=== PATIENT | male | born 1980 | race Caucasian/White ===

== ENCOUNTER 2017-04-14 16:37 | Emergency (ER) | payer OTHER ==
[~2017-04-14] VITALS: Ht 172.7 cm; Wt 100.0 kg
[~2017-04-14 16:37] MED LIST: HYCODAN1 ML OR; TAM75CAP OR; ZITHROMAX250 MG OR; no meds
[2017-04-14] MEDS ORDERED: ZPAK PO (18:17)
[2017-04-14] MEDS ORDERED: FLOXIN OTIC0.3 % OT (18:17)
[2017-04-14 18:22] VITALS: BP 138/70
== END 2017-04-14 18:22 | disposition home or self-care (01) | DRG 153 ==
LOC: ED 16:37
DX: H66.92 Otitis media, unspecified, left ear (principal); H60.92 Unspecified otitis externa, left ear

== ENCOUNTER 2018-05-19 00:27 | Emergency (ER) | payer BC ==
[~2018-05-19] VITALS: Ht 172.7 cm; Wt 100.0 kg
[~2018-05-19 00:27] MED LIST changes: +FLOXIN OTIC0.3 % OT; +ZPAK PO
[2018-05-19 01:47] VITALS: BP 134/93
[2018-05-19] MEDS ORDERED: GABAPENTIN300 M2 PO (01:52)
== END 2018-05-19 01:50 | disposition home or self-care (01) | DRG 74 ==
LOC: ED 00:27
DX: G50.1 Atypical facial pain (principal); R68.84 Jaw pain; F17.210 Nicotine dependence, cigarettes, uncomplicated

== ENCOUNTER 2019-10-29 | Emergency (ER) | payer BC ==
[~2019-10-29] MED LIST changes: +GABAPENTIN300 M2 PO
[2019-10-29] MEDS ORDERED: PROAIR HFA108 MCG/AC IN (11:17)
[2019-10-29 12:11] LABS: HEMATOCRIT 47.6 % (39.0-50.0); HEMOGLOBIN 15.6 g/dl (14.0-18.0); IMMATURE GRANULOCYTES 0.3 % (0.0-5.0); MEAN CELL VOLUME 89.6 fL CALC (80.0-100.0); MEAN CORPUSCULAR HGB 29.4 pG CALC (26.0-32.0); MEAN CORPUSCULAR HGB CONC 32.8 g/dL CAL (32.0-36.0); NEUT# 6.91 thou/uL (1.82-7.42); RED BLOOD COUNT 5.31 mill/uL (4.70-6.10); RED CELL DISTRI WIDTH 13.9 % (11.5-15.5)
[2019-10-29] MEDS ORDERED: BUPROPION HCL150 M1 PO (12:19)
[2019-10-29] MEDS ORDERED: TESSALON PER100 MG PO ×2 (12:25)
[2019-10-29] MEDS ORDERED: PREDNISONE50 MG PO (12:25)
== END 2019-10-29 12:30 | disposition home or self-care (01) | DRG 866 ==
PROVIDERS: Family Medicine
DX: B34.9 Viral infection, unspecified (principal); J45.901 Unspecified asthma with (acute) exacerbation; F17.210 Nicotine dependence, cigarettes, uncomplicated

== ENCOUNTER 2019-12-29 07:53 | Observation (INO) | payer BC ==
[~2019-12-29] VITALS: Ht 172.7 cm; Wt 102.1 kg
[~2019-12-29 07:53] MED LIST changes: +BUPROPION HCL150 M1 PO; +PREDNISONE50 MG PO; +PROAIR HFA108 MCG/AC IN; +TESSALON PER100 MG PO
--- NOTE | 2019-12-29 08:00 | NUR ---
PATIENT TO ROOM VIA WHEELCHAIR AND PHYSICIAN AT BEDSIDE FOR EVAL
[2019-12-29 08:25] LABS: HEMATOCRIT 47.1 % (39.0-50.0); HEMOGLOBIN 15.2 g/dl (14.0-18.0); IMMATURE GRANULOCYTES 0.4 % (0.0-5.0); MEAN CELL VOLUME 90.6 fL CALC (80.0-100.0); MEAN CORPUSCULAR HGB 29.2 pG CALC (26.0-32.0); MEAN CORPUSCULAR HGB CONC 32.3 g/dL CAL (32.0-36.0); NEUT# 7.7 thou/uL (1.82-7.42); RED BLOOD COUNT 5.2 mill/uL (4.70-6.10); RED CELL DISTRI WIDTH 14.4 % (11.5-15.5)
[2019-12-29 08:49] LABS: ALBUMIN 4.3 g/dL (3.2-5.0); ALKALINE PHOSPHATASE 41 u/l (38-126); BUN 15 mg/dL (9-20); BUN/CREATININE RATIO 18 (12-20 (CALC)); CHLORIDE 101 mmol/l (95-108); CREATININE 0.8 mg/dL (0.7-1.3); GFR > 60 ML/MIN (>=60 (CALC)); GFR FOR AFR.AMER. > 60 ML/MIN (>=60 (CALC)); POTASSIUM 4.2 mmol/l (3.5-5.1); SODIUM 139 mmol/l (137-146); TOTAL PROTEIN 7.6 g/dL (6.3-8.2)
[2019-12-29 08:50] LABS: ANION GAP 9 (6-22 (CALC)); BILIRUBIN, TOTAL 0.4 mg/dL (0.0-1.4); CARBON DIOXIDE 33 mmol/l (22-30); SGOT/AST 43 u/l (17-59)
--- NOTE | 2019-12-29 09:01 | NUR ---
PT MEDICATED RODERED, OFFERS NO NEW COMPLAINTS, TAKES MEDICATIONS ORDERED, AT BEDSIDE, WILL CONTINUE TO MONTIOR.
--- NOTE | 2019-12-29 09:39 | NUR ---
PT AWARE OF PENDING ADMISSION, ATTEMPTED TO CALL REPORT HOLLY MARTINEZ TO CALL BACK
--- NOTE | 2019-12-29 09:59 | NUR ---
REPORT CALLED TO HOLLY MARTINEZ
--- NOTE | 2019-12-29 10:20 | NUR ---
PT TRASNPORTED UPSTAIRD TO ROOM 268 VIA WHEELCHAIR, BELONGINGS WITH PT
--- NOTE | 2019-12-29 10:26 | NUR ---
PT ARRIVED FROM ER VIA WC WITH STAFF.
[2019-12-29 11:00] VITALS: BP 122/79
--- NOTE | 2019-12-29 11:00 | NUR ---
ASSESSMENT IS COMPLETED; IV SITE IS FREE FROM REDNESS OR EDEMA. HR IS REG,PULSES ARE STRONG X4, ABD IS SOFT WITH ACTIVE BS. TELE MONITOR IN PLACE. CONITNUE TO OBSERVE AND MONTOR/. BREATH SOUNDS ARE CLEAR,BILATERALLY,
--- NOTE | 2019-12-29 11:21 | NUR ---
SWABBED PT FOR MRSA PER PROTOCOL
--- NOTE | 2019-12-29 14:16 | NUR ---
PT HAS AUDIBLE WHEEZING NOTRD WHILE ASLEEP. IV SITE IS FREE FROM REDNESS OR EDEMA.
[2019-12-29 15:24] VITALS: BP 124/72
--- NOTE | 2019-12-29 16:00 | NUR ---
PT IS RESTING IN BED WITH NO DISTRESS NOTED. IV SITE IS FREE FROM REDNESS OR EDEMA.
[2019-12-29 18:45] VITALS: BP 140/95
--- NOTE | 2019-12-29 20:30 | NUR ---
REPORT RECEIVED FROM Sulema CAIN RN, CARE OF PT ASSUMED @ THIS TIME.
--- NOTE | 2019-12-29 21:15 | NUR ---
PHYSICAL ASSESMENT COMPLETE. VS TAKEN BY ANALYSIS ANALYST @ 1845 ASSESSED. TELEMETRY READING PROVIDED BY ED LUMBER TALLIER @ 1999 ASSESSED. PLAN OF CARE REVIEWED W/ PT, VERBALIZES UNDERSTANDING AND DENIES QUESTIONS @ THIS TIME. PROVIDED W/ HS SNACK AND EXTRA PILLOW PER HIS REQUEST. PT DENIES FURTHER NEEDS @ THIS TIME. CALL GARCIA WITHIN REACH, AGREES TO CALL PRN. BED LOCKED IN LOW POSITION W/ BEDRAILS UP X2, ITEMS WITHIN REACH.
[2019-12-29 23:35] VITALS: BP 133/71
--- NOTE | 2019-12-30 00:10 | NUR ---
TROPONINS DRAWN BY NITIN DRUPAL DEVELOPER.
--- NOTE | 2019-12-30 00:10 | NUR ---
PHYSICAL ASSESMENT UNCHANGED FROM BASELINE. VS TAKEN BY VISUAL EFFECTS EDITOR @ 0572 ASSESED. TELEMETRY READING PROVIDED BY ED CERTIFIED HEALTH EDUCATION SPECIALIST ASSESSED. PT DENIES NEEDS @ THIS TIME. CALL RADHA REAMINS WITHIN REACH, PT AGREES TO CALL PRN
--- NOTE | 2019-12-30 01:00 | NUR ---
TROPONIN RESULTS ASSESSED. RESULTS NEGATIVE. NO FURTHER INTERVENTION @ THIS TIME.
--- NOTE | 2019-12-30 03:28 | NUR ---
PT APPEARS TO BE SLEEPING COMFORTABLY. NO APPARENT DISTRESS. RESPIRATIONS REGULAR AND UNLABORED. CALL GARCIA REMAINS WITHIN REACH.
[2019-12-30 03:57] VITALS: BP 132/79
--- NOTE | 2019-12-30 05:22 | NUR ---
PHYSICAL ASSESSMENT REMAINS UNCHANGED FROM BASELINE. VS TAKEN BY EAR SPECIALIST @ 0357 ASSESSED. TELEMETRY READING PROVIDED BY ED EDGE SAWYER @ 0400 ASSESSED. PT DENIES FURTHER NEEDS @ THIS TIME. RESTING COMFORTABLY IN BED. CALL GARCIA REMAINS WITHIN REACH, AGREES TO CALL PRN. ITEMS REMAIN WITHIN REACH. BED REMAINS LOCKED IN LOW POSITION W/ BEDRAILS UP X2.
[2019-12-30 05:50] LABS: CHOLESTEROL HDL RATIO 4.4 (<4.4 (CALC))
--- NOTE | 2019-12-30 05:59 | NUR ---
PT ENDORSED TO Sulema CAIN RN, CARE OF PT HANDED OFF @ THIS TIME.
--- NOTE | 2019-12-30 07:33 | NUR ---
RECIEVED REPORT FROM DELFINO CAMPUZANO. PT SLEEPING IN LOW FOWLERS POSITION UPON ENTERING ROOM. BREATHING IS EVEN AND UNLABORED WITH NO SIGNS OF ANY DISTRESS. NO SIGNS OF ANY PAIN OR DISCOMFORTS AT THIS TIME. ALL SAFTEY [PRECAUTIONS IN PLACE WITH CALL LIGHT IN REACH. WILL CONTINUE TO MONITOR.
[2019-12-30 08:16] LABS: URINE BILIRUBIN - DIPSTICK NEGATIVE (NEGATIVE); URINE BLOOD DIPSTICK NEGATIVE (NEGATIVE); URINE COLOR YELLOW; URINE GLUCOSE - DIPSTICK NEGATIVE (NEGATIVE); URINE KETONE NEGATIVE (NEGATIVE); URINE LEUK ESTERASE NEGATIVE (NEGATIVE); URINE NITRITE - DIPSTICK NEGATIVE (Negative); URINE PROTEIN - DIPSTICK NEGATIVE (NEG-TRACE); URINE UROBILINOGEN - DIPSTICK 0.2 E.U./dL (0.2)
--- NOTE | 2019-12-30 08:59 | NUR ---
ELI,ANRP AT BEDSIDE
--- NOTE | 2019-12-30 09:00 | NUR ---
ASSESMENT AND VITALS COMPLETE.BP 128/62, HR 89, O2 92% ON ROOM AIR. HEART RHYTHM NORMAL, BOWEL SOUNDS ACTIVE, LUNG SOUNDS ARE CLEAR.PT A/O X3 AND AMBULATORY. RADIAL AND PEDAL PULSES ARE STRONG , NO EDEMA IN LOWER EXTREMITIES. SKIN IS COOL AND DRY. IV FLUSHED, SITE APPEARS HEALTHY AND PATENT. PUPILS ARE BRISK AND REACTIVE. PT DENIES ANY PAIN OR DISCOMFORTS AT THIS TIME.TELE IN PLACE READING SR RATE 88, PER ER MONITOR. ALL SAFTEY PRECAUTIONS IN PLACE WITH CALL LIGHT IN REACH. WILL CONTINUE TO MONITOR.
--- NOTE | 2019-12-30 09:21 | NUR ---
RT SOURAV AT BEDSIDE OBTAINING EKG.
[2019-12-30] MEDS ORDERED: ADVAIR DISK1 INH ×2 (10:10)
[2019-12-30] MEDS ORDERED: PREDNISONE10 MG PO ×2 (10:10)
[2019-12-30] MEDS ORDERED: ASPIRIN 8181 MG PO (10:11)
--- NOTE | 2019-12-30 10:47 | NUR ---
DR HOROWITZ AT BEDSIDE DISSCUSING POC.
--- NOTE | 2019-12-30 12:25 | NUR ---
ALL DISCHARGE INSTRUCTIONS PROVIDED AT THIS TIME BY JUAN GASCA;PT INSTRUCTED TO F/U WITH PCP AND CARDIOLOGY FOR ECHO.PT TO TAKE MEDICATIONS PRESCRIBED/DIRECTED;IV SITE REMOVED WITH CATHETER INTACT AMD TELE MONITORING D/C;WHEELCHAIR TO BE PROVIDED FOR D/C HOME;FAMILY TO TRANSPORT PT HOME.WILL CONTINUE TO MONITOR
--- NOTE | 2019-12-30 12:40 | NUR ---
Discharge instructions given. Patient verbalizes understanding of same. Discharged in stable condition via Wheelchair to Home with family. All belongings sent with pt. PT TRANSPORTED TO [facility] IN STABLE CONDITION VIA WHEELCHAIR ACCOMPANIED BY CHARLIE STOLL;FAMILY TO TRANSPORT PT HOME.
--- NOTE | 2019-12-30 12:45 | NUR ---
WORK RELEASE FORM PROVIDED TO PT.
--- NOTE | 2020-01-01 12:16 | NUR ---
Notified patient of 12/29/2019 Covid results (negative). Advised patient to follow up with PCP or return to ED with urgent issues. Advised patient to continue practicing Covid prevention. Patient verbalized understanding.
== END 2019-12-30 12:40 | disposition home or self-care (01) | DRG 203 ==
LOC: ED 07:53 → ED-I 09:05 → ED 09:17 → ED-I 09:18 → MS2 09:31
PROVIDERS: Family Medicine; ADMIT Internal Medicine; ATTEND Internal Medicine
DX: J45.901 Unspecified asthma with (acute) exacerbation (principal); R07.9 Chest pain, unspecified; R94.31 Abnormal electrocardiogram [ECG] [EKG]; F17.200 Nicotine dependence, unspecified, uncomplicated; F41.9 Anxiety disorder, unspecified; F32.9 Major depressive disorder, single episode, unspecified; Z20.828 Contact with and (suspected) exposure to other viral communicable diseases
CPT/HCPCS: G0378

== ENCOUNTER 2020-02-23 12:47 | Emergency (ER) | payer BC ==
[~2020-02-23] VITALS: Ht 172.7 cm; Wt 118.2 kg
[~2020-02-23 12:47] MED LIST changes: +ADVAIR DISK1 INH; +ASPIRIN 8181 MG PO; +PREDNISONE10 MG PO
[2020-02-23] MEDS ORDERED: LAMICTAL150 M1 PO (13:08)
[2020-02-23] MEDS ORDERED: LASIX20 MG PO (13:08)
[2020-02-23] MEDS ORDERED: KEFLEX500 M1 PO (13:30)
[2020-02-23 13:39] VITALS: BP 126/78
== END 2020-02-23 13:35 | disposition home or self-care (01) | DRG 603 ==
LOC: ED 12:47
DX: L02.415 Cutaneous abscess of right lower limb (principal); F17.200 Nicotine dependence, unspecified, uncomplicated

== ENCOUNTER 2020-08-18 14:07 | Emergency (ER) | payer BC ==
[~2020-08-18] VITALS: Ht 172.7 cm; Wt 113.0 kg
[~2020-08-18 14:07] MED LIST changes: +KEFLEX500 M1 PO; +LAMICTAL150 M1 PO; +LASIX20 MG PO
[2020-08-18] MEDS ORDERED: ATIVAN1 MG PO (14:42)
[2020-08-18 15:27] LABS: ANION GAP 15 (6-22 (CALC)); BUN 13 mg/dL (9-20); BUN/CREATININE RATIO 16 (12-20 (CALC)); CARBON DIOXIDE 25 mmol/l (22-30); CHLORIDE 104 mmol/l (95-108); CREATININE 0.8 mg/dL (0.7-1.3); GFR > 60 ML/MIN (>=60 (CALC)); GFR FOR AFR.AMER. > 60 ML/MIN (>=60 (CALC)); HEMOGLOBIN 16.4 g/dl (14.0-18.0); IMMATURE GRANULOCYTES 0.3 % (0.0-5.0); MEAN CELL VOLUME 89.9 fL CALC (80.0-100.0); MEAN CORPUSCULAR HGB 28.9 pG CALC (26.0-32.0); MEAN CORPUSCULAR HGB CONC 32.2 g/dL CAL (32.0-36.0); NEUT# 6.03 thou/uL (1.82-7.42); POTASSIUM 4.6 mmol/l (3.5-5.1); RED BLOOD COUNT 5.67 mill/uL (4.70-6.10); SODIUM 139 mmol/l (137-146)
[2020-08-18] MEDS ORDERED: PREDNISONE50 MG PO (16:39)
[2020-08-18] MEDS ORDERED: ZPAK PO (16:39)
[2020-08-18 16:53] VITALS: BP 145/95
== END 2020-08-18 17:02 | disposition home or self-care (01) | DRG 313 ==
LOC: ED 14:07
PROVIDERS: Family Medicine
DX: R07.9 Chest pain, unspecified (principal); J45.901 Unspecified asthma with (acute) exacerbation; G40.909 Epilepsy, unspecified, not intractable, without status epilepticus; I50.9 Heart failure, unspecified; F32.9 Major depressive disorder, single episode, unspecified; F41.9 Anxiety disorder, unspecified; F17.210 Nicotine dependence, cigarettes, uncomplicated; Z20.822 Contact with and (suspected) exposure to COVID-19

== ENCOUNTER 2020-10-21 20:38 | Emergency (ER) | payer BC ==
[~2020-10-21] VITALS: Ht 172.7 cm; Wt 105.0 kg
[~2020-10-21 20:38] MED LIST changes: +ATIVAN1 MG PO
[2020-10-21 21:50] LABS: HEMOGLOBIN 15.1 g/dl (14.0-18.0); IMMATURE GRANULOCYTES 1.5 % (0.0-5.0); MEAN CELL VOLUME 91.6 fL CALC (80.0-100.0); MEAN CORPUSCULAR HGB 29.4 pG CALC (26.0-32.0); MEAN CORPUSCULAR HGB CONC 32.1 g/dL CAL (32.0-36.0); NEUT# 5.68 thou/uL (1.82-7.42); RED BLOOD COUNT 5.13 mill/uL (4.70-6.10); RED CELL DISTRI WIDTH 14.3 % (11.5-15.5)
--- NOTE | 2020-10-21 21:50 | NUR ---
BREATHING TREATMENT GIVEN BACK TO BACK FOR WHEEZING AND SOB.
[2020-10-21 22:09] LABS: ALBUMIN 4.3 g/dL (3.2-5.0); ALKALINE PHOSPHATASE 48 u/l (38-126); ANION GAP 11 (6-22 (CALC)); BILIRUBIN, TOTAL 0.5 mg/dL (0.0-1.4); BUN 15 mg/dL (9-20); BUN/CREATININE RATIO 15 (12-20 (CALC)); CARBON DIOXIDE 29 mmol/l (22-30); CHLORIDE 101 mmol/l (95-108); CREATININE 0.9 mg/dL (0.7-1.3); GFR > 60 ML/MIN (>=60 (CALC)); GFR FOR AFR.AMER. > 60 ML/MIN (>=60 (CALC)); POTASSIUM 3.8 mmol/l (3.5-5.1); SGOT/AST 23 u/l (17-59); SODIUM 137 mmol/l (137-146); TOTAL PROTEIN 7.1 g/dL (6.3-8.2)
[2020-10-21 22:21] LABS: MYOGLOBIN 35 ng/mL (0 - 121)
[2020-10-21] MEDS ORDERED: ZITHROMAX250 MG PO (23:20)
[2020-10-21] MEDS ORDERED: MEDDOSEPAK PO (23:20)
[2020-10-21 23:35] VITALS: BP 129/79
== END 2020-10-21 23:30 | disposition home or self-care (01) | DRG 203 ==
LOC: ED 20:38
PROVIDERS: Emergency Medicine
DX: J45.901 Unspecified asthma with (acute) exacerbation (principal); G40.909 Epilepsy, unspecified, not intractable, without status epilepticus; I50.9 Heart failure, unspecified; F32.9 Major depressive disorder, single episode, unspecified; F41.9 Anxiety disorder, unspecified; F17.210 Nicotine dependence, cigarettes, uncomplicated; Z20.822 Contact with and (suspected) exposure to COVID-19

== ENCOUNTER 2021-03-31 17:42 | Emergency (ER) | payer BC ==
[~2021-03-31] VITALS: Ht 172.7 cm; Wt 110.0 kg
[~2021-03-31 17:42] MED LIST changes: +MEDDOSEPAK PO; +ZITHROMAX250 MG PO
[2021-03-31] MEDS ORDERED: LAMOTRIGINE150 MG PO (18:51)
[2021-03-31] MEDS ORDERED: BUPROPN HCL300 MG PO (18:52)
[2021-03-31 19:50] VITALS: BP 138/85
== END 2021-03-31 19:50 | disposition home or self-care (01) | DRG 179 ==
LOC: ED 17:42
DX: U07.1 COVID-19 (principal); I50.9 Heart failure, unspecified; J45.909 Unspecified asthma, uncomplicated; F32.9 Major depressive disorder, single episode, unspecified; F41.9 Anxiety disorder, unspecified; G40.909 Epilepsy, unspecified, not intractable, without status epilepticus; F17.200 Nicotine dependence, unspecified, uncomplicated

== ENCOUNTER 2021-04-05 06:36 | Emergency (ER) | payer BC ==
[~2021-04-05] VITALS: Ht 172.7 cm; Wt 113.6 kg
[~2021-04-05 06:36] MED LIST changes: +BUPROPN HCL300 MG PO; +LAMOTRIGINE150 MG PO
[2021-04-05 08:48] LABS: ALBUMIN 4.1 g/dL (3.2-5.0); ALKALINE PHOSPHATASE 41 u/l (38-126); ANION GAP 12 (6-22 (CALC)); BILIRUBIN, TOTAL 0.4 mg/dL (0.0-1.4); BUN 12 mg/dL (9-20); BUN/CREATININE RATIO 11 (12-20 (CALC)); CARBON DIOXIDE 30 mmol/l (22-30); CHLORIDE 100 mmol/l (95-108); CREATININE 1.1 mg/dL (0.7-1.3); GFR > 60 ML/MIN (>=60 (CALC)); GFR FOR AFR.AMER. > 60 ML/MIN (>=60 (CALC)); POTASSIUM 4.3 mmol/l (3.5-5.1); SGOT/AST 34 u/l (17-59); SODIUM 137 mmol/l (137-146); TOTAL PROTEIN 7.2 g/dL (6.3-8.2)
[2021-04-05 08:49] LABS: HEMATOCRIT 45.8 % (39.0-50.0); HEMOGLOBIN 14.8 g/dl (14.0-18.0); IMMATURE GRANULOCYTES 0.3 % (0.0-5.0); MEAN CELL VOLUME 92.5 fL CALC (80.0-100.0); MEAN CORPUSCULAR HGB 29.9 pG CALC (26.0-32.0); MEAN CORPUSCULAR HGB CONC 32.3 g/dL CAL (32.0-36.0); NEUT# 3.95 thou/uL (1.82-7.42); RED BLOOD COUNT 4.95 mill/uL (4.70-6.10); RED CELL DISTRI WIDTH 14.3 % (11.5-15.5)
[2021-04-05] MEDS ORDERED: DECADRON6 MG PO (09:03)
[2021-04-05] MEDS ORDERED: ZPAK PO (09:03)
[2021-04-05 09:40] VITALS: BP 117/72
== END 2021-04-05 09:41 | disposition home or self-care (01) | DRG 179 ==
LOC: ED 06:36
PROVIDERS: Family Medicine
DX: U07.1 COVID-19 (principal); G40.909 Epilepsy, unspecified, not intractable, without status epilepticus; I50.9 Heart failure, unspecified; J45.909 Unspecified asthma, uncomplicated; F32.9 Major depressive disorder, single episode, unspecified; F41.9 Anxiety disorder, unspecified; F17.200 Nicotine dependence, unspecified, uncomplicated

== ENCOUNTER 2021-06-19 15:49 | Emergency (ER) | payer BC ==
[~2021-06-19] VITALS: Ht 172.7 cm; Wt 118.0 kg
[~2021-06-19 15:49] MED LIST changes: +DECADRON6 MG PO
[2021-06-19] MEDS ORDERED: LAMICTAL150 M1 PO (16:06)
[2021-06-19 16:32] LABS: HEMATOCRIT 46.4 % (39.0-50.0); HEMOGLOBIN 15.5 g/dl (14.0-18.0); IMMATURE GRANULOCYTES 0.3 % (0.0-5.0); MEAN CELL VOLUME 91.3 fL CALC (80.0-100.0); MEAN CORPUSCULAR HGB 30.5 pG CALC (26.0-32.0); MEAN CORPUSCULAR HGB CONC 33.4 g/dL CAL (32.0-36.0); NEUT# 4.32 thou/uL (1.82-7.42); RED BLOOD COUNT 5.08 mill/uL (4.70-6.10); RED CELL DISTRI WIDTH 14.1 % (11.5-15.5)
[2021-06-19 16:50] LABS: ALBUMIN 4.3 g/dL (3.2-5.0); ALKALINE PHOSPHATASE 48 u/l (38-126); ANION GAP 9 (6-22 (CALC)); BUN 12 mg/dL (9-20); BUN/CREATININE RATIO 13 (12-20 (CALC)); CARBON DIOXIDE 33 mmol/l (22-30); CHLORIDE 101 mmol/l (95-108); CREATININE 0.9 mg/dL (0.7-1.3); GFR > 60 ML/MIN (>=60 (CALC)); GFR FOR AFR.AMER. > 60 ML/MIN (>=60 (CALC)); LIPASE 59 u/l (23-300); POTASSIUM 3.8 mmol/l (3.5-5.1); SGOT/AST 25 u/l (17-59); SODIUM 139 mmol/l (137-146); TOTAL PROTEIN 7.6 g/dL (6.3-8.2)
[2021-06-19 16:51] LABS: BILIRUBIN, TOTAL 0.9 mg/dL (0.0-1.4)
[2021-06-19] MEDS ORDERED: MEDDOSEPAK PO (17:36)
[2021-06-19] MEDS ORDERED: VENTOLIN HFA IN (17:36)
[2021-06-19] MEDS ORDERED: ZPAK PO (17:36)
[2021-06-19 17:42] VITALS: BP 110/71
== END 2021-06-19 17:59 | disposition home or self-care (01) | DRG 203 ==
LOC: ED 15:49
DX: J45.901 Unspecified asthma with (acute) exacerbation (principal); I50.9 Heart failure, unspecified; G40.909 Epilepsy, unspecified, not intractable, without status epilepticus; F32.A Depression, unspecified; F41.9 Anxiety disorder, unspecified; F17.200 Nicotine dependence, unspecified, uncomplicated; Z86.16 Personal history of COVID-19; Z20.822 Contact with and (suspected) exposure to COVID-19

== ENCOUNTER 2022-06-11 10:54 | Emergency (ER) | payer BC ==
[~2022-06-11] VITALS: Ht 172.7 cm; Wt 136.4 kg
[~2022-06-11 10:54] MED LIST changes: +VENTOLIN HFA IN
[2022-06-11 10:59] VITALS: BP 127/89
[2022-06-11 11:05] VITALS: BP 116/70
[2022-06-11 11:19] LABS: HEMATOCRIT 46.9 % (39.0-50.0); HEMOGLOBIN 15.3 g/dl (14.0-18.0); IMMATURE GRANULOCYTES 0.1 % (0.0-5.0); MEAN CELL VOLUME 90.2 fL CALC (80.0-100.0); MEAN CORPUSCULAR HGB 29.4 pG CALC (26.0-32.0); MEAN CORPUSCULAR HGB CONC 32.6 g/dL CAL (32.0-36.0); NEUT# 5.88 thou/uL (1.82-7.42); RED BLOOD COUNT 5.2 mill/uL (4.70-6.10); RED CELL DISTRI WIDTH 13.6 % (11.5-15.5)
[2022-06-11 11:25] LABS: ALBUMIN 4.2 g/dL (3.2-5.0); ALKALINE PHOSPHATASE 49 u/l (38-126); ANION GAP 11 (6-22 (CALC)); BUN 14 mg/dL (9-20); BUN/CREATININE RATIO 15 (12-20 (CALC)); CARBON DIOXIDE 32 mmol/l (22-30); CHLORIDE 100 mmol/l (95-108); CREATININE 0.9 mg/dL (0.7-1.3); GFR FOR AFR.AMER. > 60 ML/MIN (>=60 (CALC)); GFR OTHER RACES > 60 ML/MIN (>=60 (CALC)); POTASSIUM 4.1 mmol/l (3.5-5.1); SGOT/AST 39 u/l (17-59); SODIUM 140 mmol/l (137-146); TOTAL PROTEIN 7.5 g/dL (6.3-8.2)
[2022-06-11 11:29] LABS: BILIRUBIN, TOTAL 0.3 mg/dL (0.0-1.4)
[2022-06-11 11:30] VITALS: BP 121/90
[2022-06-11 11:46] VITALS: BP 127/83
[2022-06-11 12:01] VITALS: BP 126/65
[2022-06-11] MEDS ORDERED: PREDNISONE50 MG PO (12:20)
[2022-06-11 12:31] VITALS: BP 133/90
== END 2022-06-11 12:50 | disposition home or self-care (01) | DRG 866 ==
LOC: ED 10:54
PROVIDERS: Family Medicine
DX: B34.9 Viral infection, unspecified (principal); J45.909 Unspecified asthma, uncomplicated; Z72.0 Tobacco use